=== PATIENT | male | born 1980 | race Caucasian/White ===

== ENCOUNTER 2019-06-01 23:11 | Emergency (ER) | payer SELFPAY ==
[~2019-06-01] VITALS: Ht 177.8 cm; Wt 117.9 kg
[2019-06-01 23:50] VITALS: BP_SYST 154
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
--- NOTE | 2019-06-02 00:27 | NUR ---
Dr. Levi at bedside.
[2019-06-02 00:34] VITALS: BP_SYST 134
--- NOTE | 2019-06-02 00:34 | NUR ---
Patient and logistics officer given written and verbal discharge instructions and verbalizes understanding. ER MD discussed with patient the results and treatment provided. Patient in stable condition. ID arm band removed. No Rx given. Patient educated on pain management and to follow up with PMD. Pain Scale 0/10. Opportunity for questions provided and answered. Medication side effect fact sheet provided.
== END 2019-06-02 00:34 ==
LOC: SED 23:11
DX: Z04.1 Encounter for examination and observation following transport accident (principal); V43.52XA Car driver injured in collision with other type car in traffic accident, initial encounter; Y93.89 Activity, other specified; Y92.89 Other specified places as the place of occurrence of the external cause; Y99.8 Other external cause status
CPT/HCPCS: 99283